=== PATIENT | male | born 1950 | race Caucasian/White ===

== ENCOUNTER → 2024-10-07 15:21 | Outpatient (CLI) | payer MEDICARE, SELFPAY ==
--- NOTE | 2024-10-07 15:22 | DI.NM.S_ITS ---
PROCEDURE: NM TANG PERF SPECT R&S PHARM Rest and pharmacological stress myocardial perfusion SPECT with gated imaging and ejection fraction RADIOPHARMACEUTICAL: 24.9 mCi Tc-99m tetrafosmin IV at rest and 26.3 mCi Tc-99m tetrafosmin IV at peak effect of pharmacological stress. [id number]-[id number] was performed. INDICATIONS: AFIB PQRS ATTESTATIONS: Measure 322 - Is this imaging test primarily performed on a low-risk surgery patient for preoperative evaluation within 30 days preceding their low-risk non-cardiac surgery? Low-risk surgery is defined as cardiac or myocardial infarction less than 1%, including (but not limited to) endoscopic procedures, superficial procedures, cataract surgery, and excisional breast surgery: Answer: No Measure 323 - Is this imaging test performed primarily for the monitoring of an asymptomatic patient who had percutaneous coronary intervention on the visit date or within 2 years of the visit date? Answer: No no Measure 324 - Is this imaging test performed primarily for the initial detection and risk assessment on an asymptomatic, low coronary heart disease patient? Low CHD risk definition = clinicians should consider the maximum number of available patient factors used to estimate risk based on [place] (ATP III criteria), typically age, gender, diabetes, smoking status, and use of blood pressure medication, and integrate age appropriate estimates for missing elements, such as LDL or standard blood pressure. Answer: No TECHNIQUE: Radiopharmaceutical was injected at peak stress test, and also at rest. SPECT images were obtained. SPECT myocardial perfusion images were displayed in short axis, horizontal long axis, and vertical long axis views. Gated images were reviewed using [employer] software. COMPARISON: None. CARDIAC STRESS: A pharmacologic stress test was performed under the supervision of an attending staff, using an infusion of 0.4 mg of Lexiscan. Hemodynamic data: There is normal blood pressure and heart rate response to pharmacologic stress. Symptoms: The patient did have 7 out of 10 chest pain with associated shortness of breath. This resolved to approximately 3 out of 10 by the end of recovery.. Aminophylline: None EKG: No diagnostic changes of ischemia; no ectopy. Baseline atrial fibrillation present. FINDINGS: Raw data: There is good myocardial uptake of radiotracer. No significant motion artifacts. Mxjv-wj-ooiyy ratio is 0.49 (normal is less than 0.38 for tetrafosmin tracer). Left ventricle function: Gated images demonstrate normal left ventricular wall thickening. No segmental wall motion abnormalities. No transient ischemic dilation; TID is 1.24 (normal less than 1.3). Left ventricle resting end diastolic volume is 137 mL. Left ventricle stress ejection fraction is 56%; normal range is above 45%. Myocardial perfusion: Resting images had mild to moderate hypoperfusion in the basal to mid anterior segment. There was also severe hypoperfusion in the basal inferior segment. Stress images demonstrated the same mild to moderate hypoperfusion in the basal to mid anterior segment as well as severe hypoperfusion in the basal inferior segment. No prone images were obtained. These findings suggest possible nontransmural myocardial infarction in the mid to basal anterior and basal inferior segments. IMPRESSION: 1. Abnormal Lexiscan myocardial perfusion scan due to possible nontransmural myocardial infarction in the mid to basal anterior wall as well as basal inferior leonardo. No significant ischemia identified. Dictated by: Anibal Evans M.D. on 10/12/2024 at 17:21 Approved by: Anibal Evans M.D. on 10/12/2024 at 17:25
== END ==
LOC: NUCM 15:21
PROVIDERS: PCP Family Medicine; Referring Provider Internal Medicine Cardiovascular Disease; Visit Provider Internal Medicine Cardiovascular Disease
DX: I48.19 Other persistent atrial fibrillation (principal); I25.10 Atherosclerotic heart disease of native coronary artery without angina pectoris; R94.39 Abnormal result of other cardiovascular function study
CPT/HCPCS: 78452; 93017; A9502; J2785